=== PATIENT | female | born 2005 | race Two or more races ===

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

== ENCOUNTER 2023-04-02 13:34 | Emergency (ER) | payer OTHER ==
[~2023-04-02] VITALS: Ht 152.4 cm; Wt 43.5 kg
[2023-04-02 16:10] LABS: HEMATOCRIT 38.4 % (36.0-45.00); HEMOGLOBIN 12.7 g/dL (12.0-15.00); MEAN CELL VOLUME 88.7 fL (80.00-100.00); MEAN CORPUSCULAR HEMOGLOBIN 29.3 pg (27.00-32.0); PLATELET COUNT 225 K/uL (150-450); RED BLOOD COUNT 4.33 M/uL (4.00-6.00); RED CELL DISTRIBUTION WIDTH 13.5 % (11.5-14.5)
[2023-04-02 16:44] LABS: INR 0.99; PARTIAL THROMBOPLASTIN TIME 27.7 SECONDS (22.0-34.0); PROTHROMBIN TIME 10.4 SECONDS (9.0-11.5)
[2023-04-02 16:49] LABS: BILIRUBIN TOTAL 0.39 mg/dL (0.3-1.2); CALCIUM 9.3 mg/dL (8.5-10.1); CREATININE SERUM 0.6 mg/dL (0.55-1.02); GFR 128.78; POTASSIUM 3.71 mEq/L (3.5-5.1)
== END 2023-04-02 20:34 | disposition home or self-care (01) ==
LOC: EMR PED 13:34
PROVIDERS: Emergency Medicine
DX: N92.1 Excessive and frequent menstruation with irregular cycle (principal)

== ENCOUNTER 2024-02-05 08:30 | Outpatient (CLI) | payer OTHER | END 2024-02-05 08:39 | disposition home or self-care (01) | LOC: LAB 08:30 | PROVIDERS: ATTEND Preventive Medicine Occupational Medicine | DX: J11.1 Influenza due to unidentified influenza virus with other respiratory manifestations (principal); Z20.828 Contact with and (suspected) exposure to other viral communicable diseases ==

== ENCOUNTER 2024-03-15 14:15 | Outpatient (CLI) | payer OTHER | END 2024-03-15 14:18 | disposition home or self-care (01) | LOC: LAB 14:15 | PROVIDERS: ATTEND Preventive Medicine Occupational Medicine | DX: J11.1 Influenza due to unidentified influenza virus with other respiratory manifestations (principal); Z20.828 Contact with and (suspected) exposure to other viral communicable diseases ==

== ENCOUNTER 2024-03-30 10:13 | Emergency (ER) | payer OTHER ==
[~2024-03-30] VITALS: Ht 152.4 cm; Wt 41.7 kg
[2024-03-30] MEDS ORDERED: 0.9 % SODIUM CHLORIDE 1,000 ML IV SCH (12:30)
[2024-03-30] MEDS ORDERED: FAMOTIDINE/PF 20 MG/2 ML VIAL IV ONE (12:30)
[2024-03-30] MEDS ORDERED: ONDANSETRON HCL 2 MG/ML VIAL IV ONE (12:30)
[2024-03-30 13:05] LABS: HEMATOCRIT 38.9 % (36.0-45.00); HEMOGLOBIN 13.1 g/dL (12.0-15.00); MEAN CELL VOLUME 84.9 fL (80.00-100.00); MEAN CORPUSCULAR HEMOGLOBIN 28.7 pg (27.00-32.0); MEAN CORPUSCULAR HGB CONC 33.8 g/dl (32.0-36.0); PLATELET COUNT 178 K/uL (150-450); RED BLOOD COUNT 4.58 M/uL (4.00-6.00); RED CELL DISTRIBUTION WIDTH 15.2 % (11.5-14.5)
[2024-03-30 14:00] LABS: CALCIUM 9.8 mg/dL (8.5-10.1); CREATININE SERUM 0.68 mg/dL (0.55-1.02); GFR 110.31; POTASSIUM 4.17 mEq/L (3.5-5.1)
== END 2024-03-30 14:55 | disposition home or self-care (01) ==
LOC: ER 10:15 → EMR PED 10:38
PROVIDERS: Pediatrics
DX: R10.84 Generalized abdominal pain (principal); B34.9 Viral infection, unspecified

== ENCOUNTER 2024-04-30 02:00 | Outpatient (CLI) | payer OTHER | END 2024-04-30 02:15 | disposition home or self-care (01) | LOC: PPH VACUNA 02:00 | PROVIDERS: ATTEND Emergency Medicine Pediatric Emergency Medicine | DX: Z23 Encounter for immunization (principal) ==

== ENCOUNTER 2024-09-20 14:20 | Outpatient (CLI) | payer OTHER ==
[2024-09-20 15:03] LABS: HEMATOCRIT 43.1 % (36.0-45.00); HEMOGLOBIN 14.8 g/dL (12.0-15.00); MEAN CORPUSCULAR HEMOGLOBIN 30.2 pg (27.00-32.0); MEAN CORPUSCULAR HGB CONC 34.3 g/dl (32.0-36.0); PLATELET COUNT 203 K/uL (150-450)
[2024-09-20 16:01] LABS: MYCOPLASMA PNEUMONIAE IGM NON REACTIVE (NO REACTIVE)
== END 2024-09-20 14:24 | disposition home or self-care (01) ==
LOC: LAB 14:20
PROVIDERS: ATTEND Specialist
DX: D51.9 Vitamin B12 deficiency anemia, unspecified (principal); R94.5 Abnormal results of liver function studies; J11.1 Influenza due to unidentified influenza virus with other respiratory manifestations; A49.3 Mycoplasma infection, unspecified site; Z20.828 Contact with and (suspected) exposure to other viral communicable diseases; D50.9 Iron deficiency anemia, unspecified

== ENCOUNTER 2025-01-05 08:38 | Outpatient (CLI) | payer OTHER ==
[2025-01-05 10:05] LABS: BASO % 0.8 % (0.1-1.2); EOS # 0.10 (0.04-0.54); EOS % 1.2 % (0.7-7.0); LYMPH # 1.82 (1.18-3.74); LYMPH % 21.5 % (19.3-53.1); MEAN PLATELET VOLUME 12.10 fl (9.4-12.4); MONO # 0.57 (0.24-0.82); MONO % 6.7 % (4.7-12.5); NEUT # 5.86 (1.56-6.13); NEUT % 69.4 % (34.0-71.1); RED CELL DISTRIBUTION WIDTH 14.7 % (11.6-14.4)
[2025-01-05 10:35] LABS: URINE APPEARANCE Turbid; URINE BILIRRUBIN Negative (NEGATIVE); URINE BLOOD Negative; URINE COLOR Yellow; URINE GLUCOSE Negative (NEGATIVE); URINE KETONE Negative (NEGATIVE); URINE LEUKOCYTE Negative; URINE NITRATE Negative; URINE PROTEIN Negative (NEGATIVE); URINE UROBILINOGEN 0.2 E.U./dl
[2025-01-05 10:36] LABS: URINE BACTERIA 423.6 uL (0.0-1933); URINE EPITHELIAL CELLS 43.2 uL (0.0-38.8); URINE RBC 6.4 uL (0.0-20.8); URINE WBC 3.2 uL (0.0-23.2)
[2025-01-05 11:05] LABS: ALT/SGPT 18.0 U/L (12-78); AST/SGOT 13.0 U/L (15-37); BILIRUBIN TOTAL 0.44 mg/dL (0.3-1.2); BUN CREA RATIO 14.0 (7.0-25.0); CREATININE SERUM 0.51 mg/dL (0.55-1.02); GFR 152.23; GLOBULINA 3.3 G/DL (2.4-3.5); GLUCOSE FASTING 72.0 mg/dL (65-100); OSMOLALITY SERUM 276.0 MOSM/KG (275-295); T4 FREE 1.3 NG/ML (0.76-1.46); TSH 0.368 uIU/mL (0.358-3.74)
[2025-01-05 11:40] LABS: RH POSITIVE
[2025-01-05 11:44] LABS: URINE CAST 0.29 uL (0.0-1.40)
[2025-01-06 07:11] LABS: HEPATITIS B SURFACE ANTIBODY Non Reactive (.); HEPATITIS C VIRUS ANTIBODY Non Reactive (Non Reactive)
[2025-01-06 09:08] LABS: PROGESTERONA 39.7 ng/mL (.); RUBELLA IGG 27.80 index (Immune >0.99)
[2025-01-06 21:07] LABS: chla t Negative (Negative); neiss Negative (Negative)
== END 2025-01-05 08:44 | disposition home or self-care (01) ==
LOC: LAB 08:38
PROVIDERS: ATTEND Obstetrics & Gynecology Maternal & Fetal Medicine
DX: Z34.81 Encounter for supervision of other normal pregnancy, first trimester (principal); E03.9 Hypothyroidism, unspecified; N30.00 Acute cystitis without hematuria

== ENCOUNTER 2025-01-22 23:51 | Emergency (ER) | payer OTHER ==
[~2025-01-22] VITALS: Ht 152.4 cm; Wt 45.4 kg
[2025-01-23] MEDS ORDERED: PRENATA CHEWAB1 EACH PO (00:03)
[2025-01-23] MEDS ORDERED: METOCLOPRAMIDE HCL 5 MG/ML VIAL IM STA (00:20)
[2025-01-23] MEDS ORDERED: 0.9 % SODIUM CHLORIDE 1,000 ML IV STA (00:21)
[2025-01-23] MEDS ORDERED: FAMOtidine 10 MG/ML (4ML VIAL) IV PUSH STA (00:22)
[2025-01-23] MEDS ORDERED: METOCLOPRAMIDE HCL 5 MG/ML VIAL ONE (00:23)
[2025-01-23] MEDS ORDERED: FAMOTIDINE/PF 20 MG/2 ML VIAL ONE (00:23)
[2025-01-23 00:49] LABS: BASO % 0.8 % (0.1-1.2); EOS # 0.08 (0.04-0.54); EOS % 1.0 % (0.7-7.0); LYMPH # 2.16 (1.18-3.74); LYMPH % 25.7 % (19.3-53.1); MEAN PLATELET VOLUME 10.90 fl (9.4-12.4); MONO # 0.88 (0.24-0.82); MONO % 10.5 % (4.7-12.5); NEUT # 5.17 (1.56-6.13); NEUT % 61.5 % (34.0-71.1); RED CELL DISTRIBUTION WIDTH 14.4 % (11.6-14.4)
[2025-01-23 02:17] LABS: BUN CREA RATIO 24.0 (7.0-25.0); CREATININE SERUM 0.41 mg/dL (0.55-1.02); GFR 195.83; GLUCOSE FASTING 83.0 mg/dL (65-100); OSMOLALITY SERUM 278.0 MOSM/KG (275-295)
[2025-01-23 02:18] LABS: HCG QUANTITATIVE 104399.0 mUI/mL (1-3)
== END 2025-01-23 02:43 | disposition home or self-care (01) ==
LOC: ER 01-23 00:05
DX: O21.8 Other vomiting complicating pregnancy (principal); Z3A.11 11 weeks gestation of pregnancy

== ENCOUNTER → 2025-02-02 10:52 | Outpatient (CLI) | payer OTHER ==
[~2025-02-02 10:52] MED LIST changes: +PRENATA CHEWAB1 EACH PO
[2025-02-04 09:08] LABS: HEPATITIS A ANTIBODY IGG Negative (Negative); HEPATITIS B SURFACE ANTIBODY Non Reactive (.); HEPATITIS C VIRUS ANTIBODY Non Reactive (Non Reactive)
== END | disposition home or self-care (01) ==
LOC: LAB 10:52
DX: A64 Unspecified sexually transmitted disease (principal); O00.01 Abdominal pregnancy with intrauterine pregnancy

== ENCOUNTER 2025-02-12 18:00 | Emergency (ER) | payer OTHER ==
[~2025-02-12] VITALS: Ht 152.4 cm; Wt 44.5 kg
[2025-02-12] MEDS ORDERED: GUAIFEN/DEXTROMETHORPHAN/PE 10 ML BLIST.PACK PO ONE (18:58)
[2025-02-12] MEDS ORDERED: CETIRIZINE HCL 5MG/5ML BLIST.PACK PO ONE (18:58)
[2025-02-12] MEDS ORDERED: GUAIFENESIN/DEXTROMETHORPHAN 100MG/10ML BLIST.PACK PO ONE (19:00)
[2025-02-12] MEDS ORDERED: CETIRIZINE HCL 5 MG/5 ML ML PO ONE (19:00)
[2025-02-12 19:22] LABS: BASO % 0.7 % (0.1-1.2); EOS # 0.21 (0.04-0.54); EOS % 3.4 % (0.7-7.0); LYMPH # 1.37 (1.18-3.74); LYMPH % 22.4 % (19.3-53.1); MEAN PLATELET VOLUME 10.70 fl (9.4-12.4); MONO # 0.70 (0.24-0.82); MONO % 11.4 % (4.7-12.5); NEUT # 3.77 (1.56-6.13); NEUT % 61.6 % (34.0-71.1); RED CELL DISTRIBUTION WIDTH 14.7 % (11.6-14.4)
[2025-02-12 20:27] LABS: COVID-19 AG NEGATIVE (NEGATIVE)
[2025-02-12] MEDS ORDERED: CEFTRIAXONE SODIUM 1,000 MG VIAL IM STA (20:59)
[2025-02-12] MEDS ORDERED: LIDOCAINE HCL 1% 10ML VIAL ONE (21:24)
[2025-02-12] MEDS ORDERED: CEFTRIAXONE SODIUM 1,000 MG VIAL ONE (21:24)
== END 2025-02-12 21:53 | disposition home or self-care (01) ==
LOC: ER 18:00
PROVIDERS: General Practice
DX: O26.892 Other specified pregnancy related conditions, second trimester (principal); J00 Acute nasopharyngitis [common cold]; Z3A.14 14 weeks gestation of pregnancy; Z20.822 Contact with and (suspected) exposure to COVID-19

== ENCOUNTER 2025-03-10 12:44 | Emergency (ER) | payer OTHER ==
[~2025-03-10] VITALS: Ht 152.4 cm; Wt 45.4 kg
[2025-03-10] MEDS ORDERED: ACETAMINOPHEN 325 MG TABLET PO ONE (14:30)
[2025-03-10] MEDS ORDERED: CEPHALEXIN 500 MG CAPSULE PO ONE (16:30)
[2025-03-10] MEDS ORDERED: ACETAMINOPHEN 500 MG GEL..CAP PO ONE (16:42)
[2025-03-10 16:59] LABS: BASO % 0.4 % (0.1-1.2); EOS # 0.06 (0.04-0.54); EOS % 0.6 % (0.7-7.0); LYMPH # 1.57 (1.18-3.74); LYMPH % 17.0 % (19.3-53.1); MEAN PLATELET VOLUME 10.90 fl (9.4-12.4); MONO # 0.66 (0.24-0.82); MONO % 7.1 % (4.7-12.5); NEUT # 6.88 (1.56-6.13); NEUT % 74.4 % (34.0-71.1); RED CELL DISTRIBUTION WIDTH 13.6 % (11.6-14.4)
[2025-03-10 17:34] LABS: ALT/SGPT 18.0 U/L (12-78); AST/SGOT 17.0 U/L (15-37); BILIRUBIN TOTAL 0.32 mg/dL (0.3-1.2); BUN CREA RATIO 14.0 (7.0-25.0); CREATININE SERUM 0.44 mg/dL (0.55-1.02); GFR 180.5; GLOBULINA 3.9 G/DL (2.4-3.5); GLUCOSE FASTING 106.0 mg/dL (65-100); OSMOLALITY SERUM 276.0 MOSM/KG (275-295)
[2025-03-10 18:37] LABS: URINE APPEARANCE Cloudy; URINE BILIRRUBIN Negative (NEGATIVE); URINE COLOR Yellow; URINE GLUCOSE Negative (NEGATIVE); URINE LEUKOCYTE Moderate; URINE NITRATE Negative; URINE PROTEIN Negative (NEGATIVE); URINE UROBILINOGEN 0.2 E.U./dl
[2025-03-10 18:40] LABS: URINE BACTERIA 4313.7 uL (0.0-1933); URINE EPITHELIAL CELLS 59.8 uL (0.0-38.8); URINE RBC 51.1 uL (0.0-20.8); URINE WBC 109.8 uL (0.0-23.2)
[2025-03-10 19:22] LABS: URINE BLOOD Trace; URINE CAST 0.43 uL (0.0-1.40); URINE KETONE 40 (NEGATIVE)
[2025-03-10 19:23] LABS: TYPE CELLS SQUAMOUS; URINE CRYSTALS FEW /HPF; URINE MUCUS MODERATE
[2025-03-10] MEDS ORDERED: CEFTRIAXONE SODIUM 2,000 MG VIAL IV ONE (23:30)
[2025-03-11] MEDS ORDERED: ACETAMINOPHEN500 M1 PO (00:16)
[2025-03-11] MEDS ORDERED: MACROBID 100 M100 MG PO (00:16)
== END 2025-03-10 22:11 | disposition home or self-care (01) ==
LOC: ER 12:45
PROVIDERS: General Practice
DX: O23.42 Unspecified infection of urinary tract in pregnancy, second trimester (principal); N39.0 Urinary tract infection, site not specified; Z3A.18 18 weeks gestation of pregnancy; N20.0 Calculus of kidney

== ENCOUNTER 2025-03-15 03:41 | Inpatient (IN) | payer OTHER ==
[~2025-03-15] VITALS: Ht 152.4 cm; Wt 45.4 kg
[~2025-03-15 03:41] MED LIST changes: +ACETAMINOPHEN500 M1 PO; +MACROBID 100 M100 MG PO
--- NOTE | 2025-03-15 04:06 | NUR ---
SE RECIBE PACIENTE ALERTA Y CONCIENTE X3. LA MISMA INDICA TENER FLANKPAIN QUE IRRADIA HACIA EL CUADRANTE INFERIOR DERECHO. SE PROCEDE A NIKKI S/V A PACIENTE Y SE UBICA EN VENUS 10 CON BARANDAS ELEVADAS Y NIVEL MAS BAJO DE LA MISMA.
--- NOTE | 2025-03-15 04:32 | NUR ---
SE LLAMA A SONOGRAFISTA MALYORIE SOBRE ESTUDIO PENDIENTE CUAL REFIERE QUE PTE TIENE QUE LLENAR VEJIGA Y QUE ESTUDIO SE REALIZARA EN PROXIMO TURNO.
[2025-03-15 05:18] LABS: BASO % 0.7 % (0.1-1.2); EOS # 0.12 (0.04-0.54); EOS % 1.7 % (0.7-7.0); LYMPH # 2.02 (1.18-3.74); LYMPH % 28.6 % (19.3-53.1); MEAN PLATELET VOLUME 11.00 fl (9.4-12.4); MONO # 0.68 (0.24-0.82); MONO % 9.6 % (4.7-12.5); NEUT # 4.15 (1.56-6.13); NEUT % 58.8 % (34.0-71.1); RED CELL DISTRIBUTION WIDTH 13.8 % (11.6-14.4)
[2025-03-15 05:43] LABS: ALT/SGPT 16.0 U/L (12-78); AST/SGOT 17.0 U/L (15-37); BILIRUBIN TOTAL 0.27 mg/dL (0.3-1.2); BUN CREA RATIO 11.0 (7.0-25.0); CREATININE SERUM 0.45 mg/dL (0.55-1.02); GFR 175.88; GLOBULINA 3.3 G/DL (2.4-3.5); GLUCOSE FASTING 83.0 mg/dL (65-100); OSMOLALITY SERUM 278.0 MOSM/KG (275-295)
[2025-03-15 05:58] LABS: URINE APPEARANCE Cloudy; URINE BILIRRUBIN Negative (NEGATIVE); URINE BLOOD Negative; URINE COLOR Dark Yellow; URINE GLUCOSE Negative (NEGATIVE); URINE KETONE Negative (NEGATIVE); URINE LEUKOCYTE Moderate; URINE NITRATE Negative; URINE PROTEIN Negative (NEGATIVE); URINE UROBILINOGEN 0.2 E.U./dl
[2025-03-15 05:59] LABS: URINE BACTERIA 3039.5 uL (0.0-1933); URINE EPITHELIAL CELLS 136.1 uL (0.0-38.8); URINE RBC 4.1 uL (0.0-20.8); URINE WBC 83.8 uL (0.0-23.2)
[2025-03-15 07:56] LABS: URINE CAST 0.00 uL (0.0-1.40)
[2025-03-15 07:58] LABS: TYPE CELLS SQUAMOUS; URINE CRYSTALS FEW /HPF
[2025-03-15] MEDS ORDERED: CEFTRIAXONE SODIUM 2,000 MG VIAL IV ONE (08:45)
[2025-03-15] MEDS ORDERED: RINGERS SOLUTION,LACTATED 1,000 ML IV SCH (09:00)
[2025-03-15] MEDS ORDERED: CEFTRIAXONE SODIUM 2,000 MG VIAL ONE (09:05)
[2025-03-15 14:04] VITALS: BP 106/68
[2025-03-15] MEDS ORDERED: MORPHINE SULFATE 4 MG/ML CARTRIDGE IV PRN (14:15)
[2025-03-15] MEDS ORDERED: CYCLOBENZAPRINE HCL 5 MG TABLET PO NR (14:15)
[2025-03-15 16:34] VITALS: BP 106/71
[2025-03-15 23:50] VITALS: BP 90/50
[2025-03-16 08:00] VITALS: BP 106/67
[2025-03-16] MEDS ORDERED: CYCLOBENZAPRINE HCL 5 MG TABLET PO NR (09:00)
[2025-03-16] MEDS ORDERED: CEFTRIAXONE SODIUM 1,000 MG VIAL IV STA (14:49)
[2025-03-16 19:13] VITALS: BP 106/73
[2025-03-17] VITALS: BP 105/70
[2025-03-17 08:59] VITALS: BP 111/78
[2025-03-17] MEDS ORDERED: CEFTRIAXONE SODIUM 1,000 MG VIAL IV SCH (09:00)
[2025-03-17] MEDS ORDERED: TAMSULOSIN HCL 0.4 MG CAP PO NR (09:00)
[2025-03-17 17:00] VITALS: BP 114/80
[2025-03-17 22:15] VITALS: BP 115/79
[2025-03-17] MEDS ORDERED: MORPHINE SULFATE 4 MG/ML CARTRIDGE IV PRN (22:45)
[2025-03-18] VITALS: BP 113/82
[2025-03-18] MEDS ORDERED: ONDANSETRON HCL 2 MG/ML VIAL IV PRN (00:30)
[2025-03-18] MEDS ORDERED: METOCLOPRAMIDE HCL 5 MG/ML VIAL IV ONE (00:30)
[2025-03-18 08:12] VITALS: BP 106/71
[2025-03-18] MEDS ORDERED: CYCLOBENZAPRINE HCL 5 MG TABLET PO PRN (09:00)
[2025-03-18 18:15] VITALS: BP 110/70
[2025-03-18] MEDS ORDERED: TAMSULOSIN HCL 0.4 MG CAP PO SCH (20:00)
[2025-03-19 00:07] VITALS: BP 105/70
[2025-03-19 08:39] VITALS: BP 93/64
[2025-03-19] MEDS ORDERED: TAMSULOSIN HCL 0.4 MG CAP PO SCH (09:00)
[2025-03-19 17:42] VITALS: BP 109/76
[2025-03-19] MEDS ORDERED: ACETAMINOPHEN 500 MG GEL..CAP PO PRN (17:45)
[2025-03-20 00:17] VITALS: BP 118/84
[2025-03-20 08:00] VITALS: BP 110/74
[2025-03-20 16:00] VITALS: BP 100/68
[2025-03-20] MEDS ORDERED: METROnidazole 70 GM GEL.W.APPL VAG SCH (21:00)
[2025-03-21 00:45] VITALS: BP 119/82
[2025-03-21 08:00] VITALS: BP 107/72
[2025-03-21 16:17] VITALS: BP 107/72
[2025-03-22] VITALS (7 sets, daily range): BP systolic 105–130; BP diastolic 71–87; O2SAT 100
[2025-03-22 06:53] LABS: BASO % 0.8 % (0.1-1.2); EOS # 0.24 (0.04-0.54); EOS % 3.3 % (0.7-7.0); LYMPH # 1.97 (1.18-3.74); LYMPH % 26.9 % (19.3-53.1); MEAN PLATELET VOLUME 11.30 fl (9.4-12.4); MONO # 0.74 (0.24-0.82); MONO % 10.1 % (4.7-12.5); NEUT # 4.21 (1.56-6.13); NEUT % 57.4 % (34.0-71.1); RED CELL DISTRIBUTION WIDTH 13.9 % (11.6-14.4)
[2025-03-22 07:19] LABS: INR 0.97
[2025-03-22 07:46] LABS: ALT/SGPT 27.0 U/L (12-78); AST/SGOT 16.0 U/L (15-37); BILIRUBIN TOTAL 0.25 mg/dL (0.3-1.2); BUN CREA RATIO 23.0 (7.0-25.0); CREATININE SERUM 0.31 mg/dL (0.55-1.02); GFR 270.4; GLOBULINA 3.0 G/DL (2.4-3.5); GLUCOSE FASTING 71.0 mg/dL (65-100); OSMOLALITY SERUM 278.0 MOSM/KG (275-295)
[2025-03-22] MEDS ORDERED: CHLORHEXIDINE GLUCONATE 120 ML BOTTLE TOP ONE (19:45)
[2025-03-23] MEDS ORDERED: ONDANSETRON HCL 2 MG/ML VIAL IV PRN (01:00)
[2025-03-23 08:09] VITALS: BP 115/73
[2025-03-23 17:44] VITALS: BP 106/69
[2025-03-24 00:21] VITALS: BP 96/57
[2025-03-24 08:00] VITALS: BP 118/80
== END 2025-03-24 15:10 | disposition home or self-care (01) | DRG 818 ==
LOC: ER 03:41 → SEC-K 09:55 → OB/GYN 09:55
PROVIDERS: Preventive Medicine Public Health & General Preventive Medicine; Urology; ADMIT Obstetrics & Gynecology; ATTEND Obstetrics & Gynecology
PROC: 4A1HXCZ Monitoring of Products of Conception, Cardiac Rate, External Approach (ICD-10-PCS; 2025-03-15)
PROC: BT43ZZZ Ultrasonography of Bilateral Kidneys (ICD-10-PCS; 2025-03-15)
PROC: BT43ZZZ Ultrasonography of Bilateral Kidneys (ICD-10-PCS; 2025-03-21)
PROC: 0T788DZ Dilation of Bilateral Ureters with Intraluminal Device, Via Natural or Artificial Opening Endoscopic (ICD-10-PCS; principal; 2025-03-22 20:00)
DX: O26.892 Other specified pregnancy related conditions, second trimester (principal); N13.30 Unspecified hydronephrosis; R10.A1 Flank pain, right side; Z3A.18 18 weeks gestation of pregnancy; O99.891 Other specified diseases and conditions complicating pregnancy

== ENCOUNTER 2025-06-11 14:08 | Outpatient (CLI) | payer OTHER | END 2025-06-11 14:21 | disposition home or self-care (01) | LOC: NST 14:08 | PROVIDERS: ATTEND Obstetrics & Gynecology Gynecology | DX: Z34.83 Encounter for supervision of other normal pregnancy, third trimester (principal) ==